=== PATIENT | female | born 1980 | race Caucasian/White ===

== ENCOUNTER 2021-11-20 08:39 | Outpatient (CLI) | payer BC ==
[2021-11-20] MEDS ORDERED: Magnevist 469MG/ML 20 ML VIAL ONE (11:38)
== END 2021-11-20 08:40 | disposition home or self-care (01) ==
LOC: MRI 08:39
PROVIDERS: ATTEND Student in an Organized Health Care Education/Training Program
DX: G43.909 Migraine, unspecified, not intractable, without status migrainosus (principal)
CPT/HCPCS: 70553; A9579

== ENCOUNTER 2022-06-29 19:18 | Emergency (ER) | payer BC ==
[~2022-06-29 19:18] MED LIST: Iopamidol-370 76% 500 ML 1 ML ONE
[2022-06-29 20:52] LABS: #Lymphocytes 0.4 thou/uL (1.20-3.40); #Monocytes 0.6 thou/uL (0.11-0.59); #Neutrophils 7.5 thou/uL (1.40-6.50); %Basophils 0.1 % (0.0-1.0); %Eosinophils 0.4 % (0.0-10.0); %Lymphocytes 5.1 % (21.0-51.0); %Monocytes 6.6 % (0.0-10.0); %Neutrophils 87.7 % (42.0-75.0); Hemoglobin 14.4 g/dL (12.0-16.0); Mean Corpuscular HGB CONC 33.9 g/dL (32.0-36.0); Mean Corpuscular Hemoglobin 31.3 pg (27.0-31.0); Mean Corpuscular Volume 92.4 fL (78.0-98.0); Mean Platelet Volume 7.4 fL (7.4-10.4); Platelet Count 225 thou/uL (130-400); RBC Distribution Width 11.1 % (11.5-14.5); Red Blood Cell (RBC) Count 4.61 mill/uL (4.20-5.40); White Blood Cell (WBC) Count 8.5 thou/uL (4.8-10.8)
[2022-06-29 21:22] LABS: ALT (SGPT) 8 U/L (8-55); Alkaline Phosphatase 107 U/L (40-110); Anion Gap 13 mmol/L (10-20); BUN (Urea Nitrogen) 9 mg/dL (7.0-18.7); Bilirubin, Total 1.2 mg/dL (0.2-1.2); Calc. Creatinine Clearance 0 mL/min (70-130); Calcium 8.9 mg/dL (7.8-10.44); Carbon Dioxide 24 mmol/L (22-29); Chloride 101 mmol/L (98-107); Estimated GFR 96; Globulin 3.1 g/dL (2.4-3.5); Glucose 104 mg/dL (70-105); Potassium 4.1 mmol/L (3.5-5.1); Protein, Total 7.1 g/dL (6.0-8.3); Sodium 134 mmol/L (136-145)
[2022-06-29] MEDS ORDERED: Pantoprazole 40 MG VIAL ONE (21:43)
[2022-06-29] MEDS ORDERED: Ondansetron PF 4 MG/2 ML Vial ONE ×2 (21:43→23:25)
[2022-06-29 21:51] LABS: Bilirubin Negative (Negative); Blood, Urine Negative (Negative); Clarity Clear (Clear); Glucose, Urine (Dipstick) Normal (Negative); Ketone, Urine 10 mg/dL (Negative); Leukocyte Negative Leu/uL (Negative); Nitrite Negative (Negative); Protein, Urine (Dipstick) 10 mg/dL (Neg-Trace); Urobilinogen Normal mg/dL (Less than 2)
[2022-06-29 22:43] LABS: AST (SGOT) 16 U/L (5-34)
[2022-06-29 22:56] LABS: Pregnancy Test - Urine (BHCG) Negative (Negative); Pregu Control Background? CLEAR/WHITE (CLR/WHITE); Pregu Control Bar Appear? YES (CONTROL BAR)
[2022-06-29] MEDS ORDERED: Ketorolac Tromethamine 30 MG/ML VIAL ONE (23:25)
== END 2022-06-30 00:15 | disposition home or self-care (01) ==
LOC: ERS 19:18
DX: R10.9 Unspecified abdominal pain (principal); R11.2 Nausea with vomiting, unspecified
CPT/HCPCS: 74177; 80053; 81003; 81025; 83690; 84484; 85025; 93005; 96361; 96374; 96375; 96376; C9113; J1885; J2405; Q9967

== ENCOUNTER 2024-10-22 08:32 | Outpatient (CLI) | payer BC | END 2024-10-22 08:33 | disposition home or self-care (01) | LOC: ULT 08:32 | PROVIDERS: ATTEND Advanced Practice Midwife | DX: N88.2 Stricture and stenosis of cervix uteri (principal); R93.89 Abnormal findings on diagnostic imaging of other specified body structures; N83.201 Unspecified ovarian cyst, right side | CPT/HCPCS: 76856 ==